=== PATIENT | female | born 1990 | race Caucasian/White ===

== ENCOUNTER 2021-04-11 10:04 | Emergency (ER) | payer OTHER ==
--- OUTSIDE RECORDS SUMMARY | 2021-04-11 10:07 | XMS REPORT | Continuity of Care Document ---
:1990 Author Organization [facility] t Address [address] [place] [address] Care Team Providers Name Role Phone GREEN Attending Clinician Unavailable Pob, Lab Main Attending Clinician Unavailable Eulalio BASS Attending Clinician EULALIO Attending Clinician Unavailable Doctor Unassigned, Name Attending Clinician Unavailable uHan Braun MD Attending Clinician Payers Payer Name Policy Type Policy Number Effective Date Expiration Date S ource [place] [id number] 2020 00:00:00 [facility] [id number] 2020 00:00:00 Problems Condition Condition Condition Status Onset Resolution Last Treating Co mments Source Name Details Category Date Date Treatment Clinician Date No known No known Disease Unive rs active active ity of problems problems [facility] Allergies, Adverse Reactions, Alerts Allergy Allergy Status Severity Reaction(s) Onset Inactive Treating Comm ents Source Name Type Date Date Clinician NO KNOWN Drug Active Univers ALLERGIE Class ity of S [facility] Social History Social Habit Start Date Stop Date Quantity Comments Source ASSERTION 2020-02-29 University 00:00:00 [facility] History [facility] University o f Alcohol Std Drinks [facility] History [facility] University o f Alcohol Binge [facility] Exposure to Not sure University SARS-CoV-2 (event) [facility] Sex Assigned At Universit y of [facility] History of tobacco Cigarette Smoker University of use [facility] Cigarettes smoked 2020-04-01 2020-04-01 Univers ity of current (pack per 00:00:00 00:00:00 ) - Reported Branch Cigarette 2020-04-01 2020-04-01 University of pack-years 00:00:00 00:00:00 [facility] Tobacco use and 2020-04-01 2020-04-01 Never used Universit y of exposure 00:00:00 00:00:00 [place] [facility] Alcohol intake 2020-04-01 2020-04-01 Lifetime University of 00:00:00 00:00:00 non-drinker [facility] (finding) Branch History SDOH 2020-03-26 2020-03-26 1 University o f Alcohol Frequency 00:00:00 00:00:00 [place] [facility] Smoking Status Start Date Stop Date Source Unknown if ever smoked Universit y of [facility] Heavy tobacco smoker 2020-04-01 00:00:00 Univers ity of [facility] Medications Ordered Filled Start Stop Current Ordering Indication Dosage Frequency Signature Comments Components Source Medication Medication Date Date Medication? Clinician (SIG) Name Name CLONAZEPAM 2019-04 2020- No Take by Un kortney ORAL 06-01 mouth. ity of 06:49: 00:00 [place] 04 :00 Medical Branch CLONAZEPAM 2019- Yes Take by Uni vers ORAL 2-09 mouth. ity of 19:29: [address] Branch CLONAZEPAM 2019-04 Yes Take by Uni vers ORAL 2-09 mouth. ity of 19:29: [address] No known No Univers medications ity [facility] No known No Univers medications ity [facility] No known No Univers medications ity [facility] No known No Univers [facility] No known No Univers medications [facility] Vital Signs Vital Name Observation Time Observation Value Comments Source Systolic blood 2020-03-31 10:14:00 139 mm[Hg] Univer sity of pressure [facility] Diastolic blood 2020-03-31 10:14:00 95 mm[Hg] Unive rsity [facility] Heart rate 2020-03-31 10:14:00 85 [facility] Respiratory rate 2020-03-31 10:14:00 18 /min [facility] Oxygen saturation in 2020-03-31 10:14:00 99 /min [facility] Arterial blood by [facility] Pulse oximetry Branch Body temperature 2020-03-31 06:47:00 37.11 Regine [facility] Body height 2020-03-31 06:47:00 160 [facility] Body weight 2020-03-31 06:47:00 83.462 kg Universi ty [facility] BMI 2020-03-31 06:47:00 32.59 kg/m2 [facility] Procedures Procedure Date / Time Performing Clinician Source Performed ASSIGNMENT OF BENEFITS 2020-04-04 23:15:39 Doctor Unassigned, No [facility] ASSIGNMENT OF BENEFITS 2020-04-01 15:56:49 Doctor Unassigned, No [facility] US PELVIS COMPLETE WITH 2020-03-31 09:38:45 Baltazar Braun [facility] TRANSVAGINAL [facility] Branch BASIC METABOLIC PANEL 2020-03-31 07:33:00 Baltazar Braun [facility] (NA, K, CL, CO2, Medical Branch GLUCOSE, BUN, CREATININE, CA) TOTAL BETA HCG ASSAY 2020-03-31 07:33:00 Baltazar Braun [facility] CBC WITH DIFF 2020-03-31 07:33:00 Baltazar Braun [facility] URINALYSIS 2020-03-31 07:33:00 Baltazar Braun [facility] NOTICE OF PRIVACY 2020-03-31 06:36:56 Doctor Unassigned, No [facility] CONSENT/REFUSAL FOR 2020-03-31 06:36:44 [facility] Unassigned, [facility] US FIRST 2020-03-26 23:45:13 Remi Manley [facility] TRIMESTER LESS THAN 14 Medical B ranch WEEKS WITH TRANSVAGINAL CONSENT/REFUSAL FOR 2020-03-26 18:58:02 Doctor Unassigned, No [facility] ASSIGNMENT OF BENEFITS 2020-03-26 18:57:44 Doctor Unassigned, No [facility] Encounters Start End Encounter Admission Attending Care Care Encounter Source Date/Time Date/Time Type Type Clinicians Facility Department ID 2021-02-14 Emergency [facility] [id number] Univers 10:58:59 ity [facility] 2020-04-16 2020-04-16 Outpatient [facility] [id number] Univers 19:40:00 19:40:00 [id number] ity [facility] 2020-04-16 2020-04-16 Outpatient Jose SAMAYOA [facility] [id number] Univers 19:40:00 19:40:00 MIL[place] ity of [facility] 2020-04-04 2020-04-04 Seam Stay Stitcher Jacquelyn, Adc Lab Main [facility] 1.2.8 40.114 [id number] Univers 17:16:35 17:31:35 Visit Remi Manley [id number] ity [id number] [id number] [place]ical [address] 2020-04-04 2020-04-04 Outpatient R [facility] [id number] Univers 17:15:00 17:15:00 [id number] ity of [facility] 2020-04-04 2020-04-04 Outpatient R REMI MANLEY [facility] [id number] Univers 17:15:00 17:15:00 ity of [facility] 2020-04-04 2020-04-04 Orders Doctor JENNA [id number] Univers 00:00:00 00:00:00 Only Unassigned, ALIVIA [id number] ity of [facility] [id number] Dylan as [id number] [address] 2020-04-03 2020-04-03 Outpatient R [facility] [id number] Univers 07:30:00 07:30:00 [id number] ity of [facility] 2020-04-03 2020-04-03 Outpatient R REMI MANLEY [facility] [id number] Univers 07:30:00 07:30:00 ity of [facility] 2020-04-02 2020-04-02 Outpatient REMI MANLEY [facility] [id number] Univers 15:15:00 15:15:00 [id number] ity of [facility] 2020-04-02 2020-04-02 Outpatient R REMI MANLEY [facility] [id number] Univers 15:15:00 15:15:00 ity of [facility] 2020-04-02 2020-04-02 Seam Stay Stitcher Jacquelyn, Adc Lab Main [facility] 1.2.8 40.114 [id number] Univers 07:47:56 08:02:56 Visit Remi Manley [id number] it[place] [id number] [place]ical nal [address] [facility] 2020-04-02 2020-04-02 Outpatient R [facility] [id number] Univers 08:00:00 08:00:00 ity of [facility] 2020-04-01 2020-04-01 Outpatient R REMI MANLEY [facility] [id number] Univers 11:00:00 11:00:00 [id number] ity of [facility] 2020-04-01 2020-04-01 Outpatient R REMI MANLEY [facility] [id number] Univers 11:00:00 11:00:00 ity of [facility] 2020-04-01 2020-04-01 Outpatient R REMI MANLEY [facility] [id number] Univers 10:15:00 10:15:00 ity of [facility] 2020-04-01 2020-04-01 Seam Stay Stitcher Jacquelyn, Adc Lab Main [facility] 1.2.8 40.114 [id number] Univers 10:00:00 10:15:00 Visit Remi Manley [id number] it[place] [phone] [place]ical [place]al [address] [place] [address] 2020-04-01 2020-04-01 Orders Doctor JENNA 1.2.840.114 [id number] Univers 00:00:00 00:00:00 Only Unassigned, ALIVIA [id number] ity of [place] [facility] 4.2.7.2.686 Dylan as [phone] [facility] [address] 2020-03-31 2020-03-31 Emergency [facility] [id number] Univers 00:51:00 04:16:00 Baltazar Huan [place] 350.1.13.10 it[place] [id number] [facility] [address] 2020-03-29 2020-03-29 Seam Stay Stitcher Jacquelyn, Adc Lab Main [facility] 1.2.8 40.114 [id number] Univers 09:18:29 09:33:29 Visit Remi Manley 350.1.13.10 it[place] [phone] [place]ical nal [address] [facility] 2020-03-29 2020-03-29 Outpatient [facility] [id number] Univers 08:00:00 08:00:00 [id number] ity of [facility] 2020-03-29 2020-03-29 Outpatient R REMI MANLEY [facility] [id number] Univers 08:00:00 08:00:00 ity of [facility] 2020-03-27 2020-03-27 Outpatient REMI MANLEY [facility] [id number] Univers 09:00:00 09:00:00 ity of [facility] 2020-03-26 2020-03-26 Hospital Remi Manley [facility] 1.2.840.114 [id number] Univers 17:00:00 23:59:00 Encounter [place] [address].1.13[address] [facility] 4.2.7.2.686 [facility] [phone] [facility] [address] [place] [address] 2020-03-26 2020-03-26 Outpatient R REMI MANLEY [facility] [id number] Univers 17:00:00 17:00:00 ity of [facility] 2020-03-26 2020-03-26 Outpatient R REMI MANLEY [facility] [id number] Univers 13:00:00 13:00:00 ity of [facility] 2020-03-26 2020-03-26 Orders Doctor JENNA 1.2.840.114 [id number] Univers 00:00:00 00:00:00 Only Unassigned, ALIVIA 350.1.13.10 ity of [place] [facility] [id number] [facility] [phone] [facility] [address] Results Test Description Test Time Test Comments Results Result Comments Source TOTAL [facility] ([facility]) 2020-03-31 08:26:00 Test Item Value Reference Range Interpretation Comme nts BETA HCG (test code = See_Comment [Auto mated message] The [id number]) system which ge nerated this result transmit edgar reference range : Non- fe male and male patients: <5 mIU/mL. The reference r jordan was not used to interpr et this result as osman l/abnormal. FELIX (test code = FELIX) Gestational Age ?Range (mIU/mL) 1-10 ?Weeks ?26-30223339-81 Weeks ?67129-79549697-61 Weeks ?1087-55419544-29 Weeks ?8838-387727 Biotin has been reported to cause a negative bias, interpret results relative to patient's use of biotin. [facility] METABOLIC PANEL (NA, K, CL, CO2, GLUCOSE, BUN, CREATININE, CA)2020-03-31 08:09:00 Test Item Value Reference Range Interpretation Comments NA (test code = 138 mmol/L 135-145 7635181700) K (test code = 3.6 mmol/L 3.5-5 2855914200) CL (test code = 104 mmol/L 98-108 1727869347) CO2 TOTAL (test code = 24 mmol/L 23-31 6805589021) AGAP (test code = 2-16 1310188281) BUN (test code = 9 mg/dL 7-23 0184404387) GLUCOSE (test code = 113 mg/dL 70-110 H 0763299059) CREATININE (test code = 0.66 mg/dL 0.5-1.04 3895716019) CALCIUM (test code = 9.6 mg/dL 8.6-10.6 8981601893) eGFR Calculation mL/min/1.73m2 (Non-) (test code = 9733864546) eGFR Calculation mL/min/1.73m2 () (test code = 3573260472) FELIX (test code = FELIX) Association of Glomerular Filtration Rate (GFR) and Staging of Kidney Disease* + --+ --+ ------+| GFR (mL/min/1.73 m2) ?| With Kidney Damage ?| ?Without Kidney Damage+ --------+ --------+ +| ?>90 ?| ?Stage one ?| ? Normal ?+ ---+ ---+ -------+| ?60-89 ?| ?Stage two ?| ? Decreased GFR ? + --+ --+ ------+| ?30-59 ?| ?Stage three ?| ? Stage three ? + --+ --+ ------+| ?15-29 ?| ?Stage four ? | ? Stage four ?+ ---+ ---+ -------+| ?<15 (or dialysis) ? ?| ?Stage five ? | ? Stage five ?+ ---+ ---+ -------+ *Each stage assumes the associated GFR level has been in effect for at least three months. ?Stages 1 to 5, with or without kidney disease, indicate chronic kidney disease. Notes: Determination of stages one and two (with eGFR >59mL/min/1.73 m2) requires estimation of kidney damage for at least three months as defined by structural or functional abnormalities of the kidney, manifested by either:Pathological abnormalities or Markers of kidney damage (including abnormalities in the composition of the blood or urine or abnormalities in imaging tests). Lab Interpretation Abnormal (test code = 57657-7) [facility]:01[facility]00 Test Item Value Reference Range Interpretation Comments APPEARANCE (test code = Clear Clear 0680640627) COLOR (test code = Yellow Yellow 5385348704) PH (test code = 4.8-8.0 8390100341) SP GRAVITY (test code = 1.003-1.030 1102442497) GLU U QUAL (test code = Normal Normal 3992670688) BLOOD (test code = Negative Negative 3086950495) KETONES (test code = Negative Negative 4950345094) PROTEIN (test code = Negative Negative 2887-8) UROBILIN (test code = Normal Normal 1930647347) BILIRUBIN (test code = Negative Negative 3473199707) NITRITE (test code = Negative Negative 8856929515) LEUK MARY LOU (test code = 25/uL Negative A 7545412155) RBC/HPF (test code = See_Comment [Autom ated message] 6659373425) The system [employer] generated this result transmitted ref erence range: 0 - 3 HP F. The reference range was not used to int erpret this result as normal/abnormal . WBC/HPF (test code = See_Comment [Autom ated message] 6711570677) The system [employer] generated this result transmitted ref erence range: 0 - 5 HP F. The reference range was not used to int erpret this result as normal/abnormal . BACTERIA (test code = Few Negative A 2773517679) MUCOUS (test code = Slight Negative LPF A 2918198964) SQ EPITH (test code = HPF 7826961339) Lab Interpretation (test Abnormal code = 47956-4) [facility] WITH [id number] 08:01:00 Test Item Value Reference Range Interpretation Comments WBC (test code = See_Comment H [Automated 6690-2) message] The system which generated this result transmit edgar reference range : 4.30 - 11.10 10*3/?L. The reference range was not used to interpret this result as normal/abnormal . RBC (test code = See_Comment [Automated 789-8) message] The system which generated this result transmit edgar reference range : 3.93 - 5.25 10*6/?L. The reference range was not used to interpret this result as normal/abnormal . HGB (test code = 14.5 g/dL 11.6-15 718-7) HCT (test code = 40.2 % 35.7-45.2 4544-3) MCV (test code = 92.2 fL 80.6-95.5 787-2) MCH (test code = 33.3 pg 25.9-32.8 H 785-6) MCHC (test code = 36.1 g/dL 31.6-35.1 H 786-4) RDW-SD (test code = 42.8 fL 39-49.9 29458-0) RDW-CV (test code = 12.6 % 12-15.5 788-0) PLT (test code = See_Comment [Automated 777-3) message] The system which generated this result transmit edgar reference range : 166 - 358 10*3/ ?L. The reference range was not u sed to interpret th is result as normal/abnormal . MPV (test code = 10.5 fL 9.5-12.9 92704-5) NRBC/100 WBC (test See_Comment [Automat ed code = 6880891862) message] The system which generated this result transmit edgar reference range : 0.0 - 10.0 /100 WBCs. The reference range was not used to interpret this result as normal/abnormal . NRBC x10^3 (test code <0.01 See_Comment [Auto mated = 0755093497) message] The system which generated this result transmit edgar reference range : 10*3/?L. The reference range was not used to interpret this result as normal/abnormal . GRAN MAT (NEUT) % 68.1 % (test code = 770-8) IMM GRAN % (test code 0.40 % = 7093791720) LYMPH % (test code = 25.0 % 736-9) MONO % (test code = 5.6 % 5905-5) EOS % (test code = 0.6 % 713-8) BASO % (test code = 0.3 % 706-2) GRAN MAT x10^3(ANC) 10.00 10*3/uL 1.88-7.09 H (test code = 8453474167) IMM GRAN x10^3 (test 0.06 10*3/uL 0-0.06 code = 1157822777) LYMPH x10^3 (test code 3.67 10*3/uL 1.32-3.29 H = 731-0) MONO x10^3 (test code 0.82 10*3/uL 0.33-0.92 = 742-7) EOS x10^3 (test code = 0.09 10*3/uL 0.03-0.39 711-2) BASO x10^3 (test code 0.04 10*3/uL 0.01-0.07 = 704-7) Lab Interpretation Abnormal (test code = 12732-2) [facility] FIRST TRIMESTER LESS THAN 14 WEEKS WITH [id number] 07:26:39 1. ?Suspected gestational sac with a gestational age of 4 weeks and 6 days.No pole or cardiacactivity was detected, probably since this is anearly . Close follow-up is recommended. 2. ?Small volume fluid layers within the cul-de-sac. Preliminary Report Dictated by Resident: Nabeel Yeh MD., have reviewed this study and agree with the abovereport.EXAM: PELVIC ULTRASOUND, TRANSABDOMINAL AND TRANSVAGINAL HISTORY: 5 weeks 5 days by LMP, concern for ectopic COMPARISON: None FINDINGS: Last menstrual period: 02/15/2020. OB history: A3. UTERUS: The uterus measures 7.9 x 4.7 x 5 cm. What appears to be agestational sac measures 0.3 x 0.2 x 0.6 cm with a mean diameter of 0.4 cmand a gestational age of 4 weeks and 6 days. No pole or yolk sac isid entified. No cardiac activity was registered. OVARIES: The right ovary measures 3.3 x 2.9 x 2.6 cm (13.2 mL). The leftovary measures 3.8 x 2.7 x 1.6 cm (8.2 mL). No adnexal masses. Small volume of freefluid layers within the cul-de-sac. [facility], Radiant Results Inft User - 03/27/2020 1:27 AM CSTEXAM: PELVIC ULTRASOUND, TRANSABDOMINAL AND TRANSVAGINALHISTORY: 5 weeks 5 days by LMP, concern for ectopic COMPARISON: NoneFINDINGS:Last menstrual period: 02/15/2020.OB history: A3.UTERUS: Theuterus measures 7.9 x 4.7 x 5 cm. What appears to be agestational sac measures 0.3 x 0.2 x 0.6 cm with a mean diameter of 0.4 cmand a gestational age of 4 weeks and 6 days. No pole or yolk sac isidentified. No cardiac activity was registered.OVARIES: The right ovary measures 3.3 x 2.9 x 2.6 cm (13.2 mL). The leftovary measures 3.8 x 2.7 x 1.6 cm (8.2 mL).No adnexal masses.Small volume of free fluid layers within the cul-de-sac.IMPRESSION1. Suspected gestational sac with a gestational age of 4 weeks and 6 days.No pole or cardiac activity was detected, probably since this is anearly . Close follow-up is recommended.2. Small volume fluid layers within the cul-de-sac.PreliminaryReport Dictated by Resident: Hari Handy, Nabeel Townsend MD., have reviewed this study and agree with the abovereport.[facility]"
--- NOTE | 2021-04-11 11:41 | ER ---
Nurse's Notes [facility] Name: Gonzalo Montelongo Age: 30 yrs Sex: Female : 1990 Arrival Date: 04/11/2021 Time: 10:07 Bed 10 Private MD: Diagnosis: Periapical abscess without sinus Presentation: 04/11 10:43 Chief complaint: Patient states: started with a toothache and moved int right jaw, now iw right side of face is swollen since 3 am. Coronavirus screen: At this time, the client does not indicate any symptoms associated with coronavirus-19. Ebola Screen: Patient negative for fever greater than or equal to 101.5 degrees Fahrenheit, and additional compatible Ebola Virus Disease symptoms Patient denies exposure to infectious person. Patient denies travel to an Ebola-affected area in the 21 days before illness onset. No symptoms or risks identified at this time. Initial Sepsis Screen: Does the patient meet any 2 criteria? No. Patient's initial sepsis screen is negative. Does the patient have a suspected source of infection? No. Patient's initial sepsis screen is negative. Risk Assessment: Do you want to hurt yourself or someone else? Patient reports no desire to harm self or others. Onset of symptoms was April 11, 2021 at 10:44. 10:43 Method Of Arrival: Ambulatory iw 10:43 Acuity: SPRING 4 iw LOOP SEWER: 10:44 LMP 03/12/2021 iw Historical: - Allergies: 10:44 No Known Allergies; iw - Home Meds: 10:44 None [Active]; iw - PMHx: 10:44 None; iw - PSHx: 10:45 tubal ligation; iw - Immunization history:: Client reports receiving the 2nd dose of the Covid vaccine. - Social history:: Smoking status: Patient reports the use of cigarette tobacco products, smokes one-half pack cigarettes per day. Vital Signs: 10:43 BP 146 / 99; Pulse 98; Resp 16; Temp 97.6; Pulse Ox 100% ; Weight 83.46 kg; Height 5 iw ft. 3 in. (160.02 cm); Pain 7/10; 10:43 Body Mass Index 32.59 (83.46 kg, 160.02 cm) iw ED Course: 10:07 Patient arrived in ED. ds1 10:44 Triage completed. iw 10:44 Arm band placed on. iw 11:12 Viv Springer RN is Primary Nurse. iw 11:14 Alfonso Loyola NP is PHCP. pm1 11:14 Radha Dempsey MD is Attending Physician. pm1 Administered Medications: 12:17 Drug: [place] (HYDROcodone-acetaminophen) 10 mg-325 mg 1 tabs Route: PO; iw 12:17 Drug: Clindamycin 600 mg Route: IM; Site: left gluteus; iw Outcome: 11:40 Discharge ordered by . pm1 12:21 Patient left the ED. iw Signatures: [place] Denise ds1 Viv Springer RN RN iw Alfonso Loyola NP SWITCH FOREMAN pm1
--- NOTE | 2021-04-11 11:41 | EDPHYS ---
Physician Documentation [facility] Name: Gonzalo Montelongo Age: 30 yrs Sex: Female : 1990 Arrival Date: 04/11/2021 Time: 10:07 Bed 10 Private MD: ED Physician Radha Dempsey HPI: 04/11 11:39 This 30 yrs old Female presents to ER via Ambulatory with complaints of Facial Swelling.pm1 11:39 The patient presents with pain, swelling. The problem is located in the upper right pm1 second bicuspid. Onset: The symptoms/episode began/occurred 3 day(s) ago, swelling started last night. Duration: The symptoms are continuous. Modifying factors: The symptoms are alleviated by cool compress. Associated signs and symptoms: Pertinent positives: swelling, facial, Pertinent negatives: fever, inability to eat. Severity of symptoms: in the emergency department the symptoms. The patient has not experienced similar symptoms in the past. The patient has not recently seen a physician. Patient with chronic dental decay and pain since she was 18. Patient reports acute pain 3 days ago with onset of swelling last night. [employer]: 10:44 LMP 03/12/2021 iw Historical: - Allergies: 10:44 No Known Allergies; iw - Home Meds: 10:44 None [Active]; iw - PMHx: 10:44 None; iw - PSHx: 10:45 tubal ligation; iw - Immunization history:: Client reports receiving the 2nd dose of the Covid vaccine. - Social history:: Smoking status: Patient reports the use of cigarette tobacco products, smokes one-half pack cigarettes per day. ROS: 11:39 Constitutional: Negative for fever, chills, and weight loss. pm1 11:39 Neck: Negative for injury, pain, and swelling, Cardiovascular: Negative for chest pain, palpitations, and edema, Respiratory: Negative for shortness of breath, cough, wheezing, and pleuritic chest pain, MS/Extremity: Negative for injury and deformity, Skin: Negative for injury, rash, and discoloration, Neuro: Negative for headache, weakness, numbness, tingling, and seizure. 11:39 ENT: Positive for dental pain, Negative for difficulty swallowing, difficulty handling secretions, hoarseness. 11:39 All other systems are negative. Exam: 11:39 Constitutional: This is a well developed, well nourished patient who is awake, alert, pm1 and in no acute distress. Head/Face: Normocephalic, atraumatic. 11:39 Neck: Trachea midline, no thyromegaly or masses palpated, and no cervical lymphadenopathy. Supple, full range of motion without nuchal rigidity, or vertebral point tenderness. No Meningismus. 11:39 Skin: Warm, dry with normal turgor. Normal color with no rashes, no lesions, and no evidence of cellulitis. MS/ Extremity: Pulses equal, no cyanosis. Neurovascular intact. Full, normal range of motion. 11:39 ENT: Dental exam: abscess, is not appreciated, dental caries, that is moderate, diffusely, pain, specifically in the upper right second bicuspid (#4). 11:39 Cardiovascular: Exam negative for acute changes, Rate: normal, Rhythm: regular, Pulses: no pulse deficits are appreciated. 11:39 Respiratory: Exam negative for acute changes, respiratory distress, shortness of breath. 11:39 Abdomen/GI: Inspection: abdomen appears normal, Bowel sounds: normal, Palpation: abdomen is soft and non-tender, in all quadrants. 11:39 Neuro: Exam negative for acute changes, Orientation: is normal, Mentation: is normal, Motor: moves all fours. Vital Signs: 10:43 BP 146 / 99; Pulse 98; Resp 16; Temp 97.6; Pulse Ox 100% ; Weight 83.46 kg; Height 5 iw ft. 3 in. (160.02 cm); Pain 7/10; 10:43 Body Mass Index 32.59 (83.46 kg, 160.02 cm) iw MDM: 11:17 Patient medically screened. pm1 11:39 Data reviewed: vital signs. Data interpreted: Pulse oximetry: on room air is 100 %. pm1 Interpretation: normal. Counseling: I had a detailed discussion with the patient and/or guardian regarding: the historical points, exam findings, and any diagnostic results supporting the discharge/admit diagnosis, the need for outpatient follow up, for definitive care, a dentist, to return to the emergency department if symptoms worsen or persist or if there are any questions or concerns that arise at home. Administered Medications: 12:17 Drug: [place] (HYDROcodone-acetaminophen) 10 mg-325 mg 1 tabs Route: PO; iw 12:17 Drug: Clindamycin 600 mg Route: IM; Site: left gluteus; iw Disposition Summary: 04/11/21 11:40 Discharge Ordered Location: Home pm1 Problem: new pm1 Symptoms: have improved pm1 Condition: Stable pm1 Diagnosis - Periapical abscess without sinus pm1 Followup: pm1 - With: Emergency Department - When: As needed - Reason: Worsening of condition Followup: pm1 - With: Private Physician - When: 2 - 3 days - Reason: Recheck today's complaints, Continuance of care, Re-evaluation by your physician Discharge Instructions: - Discharge Summary Sheet pm1 - Dental Abscess pm1 - Dental Pain pm1 - Diet and Dental Disease pm1 Forms: - Medication Reconciliation Form pm1 - Thank You Letter pm1 - Antibiotic Education pm1 - Prescription Opioid Use pm1 Prescriptions: - Clindamycin HCl 300 mg Oral Capsule - take 1 capsule by ORAL route every 6 hours for 10 days; 40 capsule; Refills: 0, pm1 Product Selection Permitted - Tramadol 50 mg Oral Tablet - take 1 tablet by ORAL route every 8 hours as needed; 12 tablet; Refills: 0, pm1 Product Selection Permitted Addendum: 04/12/2021 18:52 Co-signature as Attending Physician, Radha Dempsey MD PA/RADIOTELEGRAPHIST's history reviewed, m a2 patient interviewed, and examined. I agree with assessment and care plan and confirm the diagnosis (es) above. Signatures: Viv Springer, RN RN iw Alfonso Loyola NP RADIOTELEGRAPHIST pm1 Radha Dempsey MD MD ma2
[2021-04-11] MEDS ORDERED: CLINDAMYCIN IV 150 MG/ML (4 mL) VIAL ONE (12:07)
[2021-04-11] MEDS ORDERED: HYDROCODONE/APAP 10/325 TAB ONE (12:07)
[2021-04-11 12:27] VITALS: BP 146/99; TEMP 97.6; O2SAT 100
== END 2021-04-11 12:21 | disposition home or self-care (01) ==
LOC: ER 10:04
DX: K04.7 Periapical abscess without sinus (principal)
CPT/HCPCS: 96372; 99282; S0077